=== PATIENT | female | born 1965 | race Caucasian/White ===

== ENCOUNTER 2021-06-17 21:09 | Emergency (ER) | payer OTHER ==
[2021-06-17] MEDS ORDERED: TETRACAINE 0.5% OPHTH DROPS 4 ML RIGHTEYE ONE (21:30)
--- NOTE | 2021-06-17 21:35 | ED Physician Documentation ---
PD HPI OPHTHO - Stated complaint Stated Complaint: RT EYE INJURY - Chief complaint Chief Complaint: Heent - History obtained from History obtained from: Patient - History of Present Illness Location: Right Quality / character: Burning Associated symptoms: Tearing, Photophobia. No: Decreased vision, Loss of vision - Additional information Additional information: Patient presenting for evaluation of right eye pain since 5:30 PM. Patient was outside today, denies any known trauma or injury. At 530 she started feeling a foreign body sensation in her eye and felt irritation. The discomfort has become worse through the evening.She denies any chemical exposure. She does recall touching a succulent plant and then touching her eye. Afterwards her eye was watery and she was rubbing it with her hand.She did attempt irrigation With water. She does not wear contact lenses.She reports photophobia. When she is able to open the eye, she denies any changes to her vision. She denies a headache. No recent illness. Review of Systems Constitutional: denies: Fever, Chills Eyes: reports: Photophobia, Irritation. 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 : None HEENT: None Psych: None Musculoskeletal: None Derm: None - Past Surgical History Past Surgical History: Yes - Present Medications Home Medications: Ambulatory Orders Medication Instructions Recorded Confirmed Erythromycin Base [Erythromycin 1 appful OP 5XD 7 Days #1 gm 06/17/21 Ophthalmic Ointment] - Allergies Allergies/Adverse Reactions: Allergies Allergy/AdvReac Type Severity Reaction Status Date / Time iodine AdvReac Rash Verified 06/17/21 21:20 - Social History Does the pt smoke?: Yes Smoking Status: Current every day smoker Does the pt drink ETOH?: No Does the pt have substance abuse?: No - Immunizations Immunizations are current?: Yes PD ED PE NORMAL - General General: Alert and oriented X 3 - HEENT HEENT: Atraumatic, PERRL, EOMI, Other (mild erythema to right of eye, small area fluorescein uptake outer lower portion of R cornea (7 o'clock), IOP WNL x 2 (15,16), mild conjunctival injection, normal appearing sclera, no FB) - Neck Neck: Supple, no meningeal sign - Respiratory Respiratory: No respiratory distress - Derm Derm: Normal color - Neuro Neuro: Alert and oriented X 3, No motor deficit - Psych Psych: Normal mood PD ED PE EXPANDED - Eyes Eyes: PERRL, EOMI, No eyelid FB (everted), Corneal abrasion, Fluorescein uptake, Anterior chambers clear. No: Unequal pupils, Eyelid injury, Eyelid swelling, Eyelid erythema, Scleral icterus, Hyphema Results - Vitals Vitals: Vital Signs - 24 hr 06/17/21 06/17/21 21:20 21:59 Temperature 37 C Heart Rate 107 H 88 Respiratory 20 18 Rate Blood Pressure 187/119 H 175/103 H O2 Saturation 97 100 Oxygen O2 Source Room air PD MEDICAL DECISION MAKING - ED course ED course: Patient with right eye irritation for 1 day. Visual acuity Is intact and normal for the patient. She does not have a foreign body on exam. No signs of preseptal or septal cellulitis. She does have a corneal abrasion noted on exam which is consistent with her symptoms.Her intraocular pressures are normal. Her initial blood pressure was elevated but she does not have symptoms To suggest hypertensive urgency or emergency. Her repeat blood pressure is improved and she was instructed that she should follow-up to have it rechecked. Departure - Departure Disposition: 01 Home, Self Care Clinical Impression: Injury of conjunctiva and corneal abrasion of right eye w/o FB, Elevated blood pressure reading Condition: Stable Instructions: ED Eye Injury Corneal Abrasion Prescriptions: Erythromycin Base [Erythromycin Ophthalmic Ointment] 1 appful OP 5XD 7 Days #1 gm Comments: Your blood pressure was elevated today. Please follow-up with your primary care physician next week for recheck of your blood pressure. 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 Return to the emergency department with any worsening of your symptoms such as change in your vision, redness, swelling, increased irritation to your eye or with any concerns. Discharge Date/Time: 06/17/21 22:07
[2021-06-17] MEDS ORDERED: PROPARACAINE 0.5% OPHTH DROPS 15 ML RIGHTEYE STA (21:36)
[2021-06-17] MEDS ORDERED: ERYTHROMYCIN OPHTH OINT 1 GM TUBE RIGHTEYE STA (21:50)
[2021-06-17 22:00] VITALS: BP 175/103
== END 2021-06-17 22:07 | disposition home or self-care (01) ==
LOC: ED 21:09
DX: S05.01XA Injury of conjunctiva and corneal abrasion without foreign body, right eye, initial encounter (principal); X58.XXXA Exposure to other specified factors, initial encounter; R03.0 Elevated blood-pressure reading, without diagnosis of hypertension
CPT/HCPCS: 99282; J3490